=== PATIENT | male | born 1940 | race Caucasian/White ===

== ENCOUNTER 2023-08-12 12:12 | Emergency (ER) | payer OTHER ==
[~2023-08-12] VITALS: Ht 172.7 cm; Wt 68.0 kg
[2023-08-12 12:14] VITALS: O2SAT 100
[2023-08-12 12:52] LABS: CARBON DIOXIDE 27 mmol/L (21-32); CHLORIDE 104 mmol/L (98-107); GLUCOSE 132 mg/dL (74-106); POTASSIUM 4.2 mmol/L (3.5-5.1); SODIUM SERUM 139 mmol/L (136-145); UREA NITROGEN, BLOOD 38 mg/dL (7-18)
[2023-08-12 12:57] LABS: AMMONIA 26 umol/L (11-32); ETHANOL < 3 MG/DL (0-10)
[2023-08-12 13:01] LABS: ACETAMINOPHEN < 2.0 ug/mL (10-30); ALANINE AMINOTRANSFERASE 29 U/L (16-63); ALBUMIN 3.6 g/dL (3.4-5.0); ALKALINE PHOSPHATASE 52 U/L (50-136); ASPARTATE AMINOTRANSFERASE 16 U/L (15-37); BILIRUBIN,DIRECT 0.1 mg/dL (0.0-0.2); BILIRUBIN,TOTAL 0.3 mg/dL (0.2-1.0)
[2023-08-12 13:05] LABS: THYROID STIMULATING HORMONE 0.652 mIU/mL (0.358-3.740)
[2023-08-12 13:10] LABS: BASOPHILS # (AUTO) 0.1 K/UL (0.0-0.2); BASOPHILS % (AUTO) 1.2 % (0.0-2.0); EOSINOPHILS # (AUTO) 0.3 K/uL (0.0-0.7); EOSINOPHILS % (AUTO) 5.9 % (0.0-7.0); HEMATOCRIT 36.2 % (36.7-47.1); LYMPHOCYTES # (AUTO) 0.9 K/uL (0.8-4.8); LYMPHOCYTES % (AUTO) 20.6 % (20.5-51.5); MEAN CORPUSCULAR HEMOGLOBIN 30.6 uug (23.8-33.4); MEAN CORPUSCULAR HGB CONC 33 g/dL (32.5-36.3); MONOCYTES # (AUTO) 0.2 K/uL (0.1-1.30); MONOCYTES % (AUTO) 5.5 % (0.0-11.0); NEUTROPHILS # (AUTO) 2.9 K/uL (1.8-8.9); NEUTROPHILS % (AUTO) 66.8 % (38.5-71.5); PLATELET COUNT (AUTO) 144 K/uL (152-348); RED BLOOD CELL COUNT(AUTO) 3.93 MIL/uL (4.06-5.63); RED CELL DISTRIBUTION WIDTH 13.6 % (12.1-16.2); WHITE BLOOD COUNT (AUTO) 4.3 K/uL (3.6-10.2)
[2023-08-12 13:16] LABS: DIFFERENTIAL COMMENT 1
== END 2023-08-12 16:21 | disposition home or self-care (01) ==
LOC: EDBD 12:12 → ER 12:12
DX: R09.89 Other specified symptoms and signs involving the circulatory and respiratory systems (principal); R51.9 Headache, unspecified; R07.89 Other chest pain
CPT/HCPCS: 36415; 70450; 71045; 84443; 84484; 85025; 85730; 93005; A4606; A4663; G0480

== ENCOUNTER 2024-05-21 17:03 | Emergency (ER) | payer OTHER, MEDICAID ==
[~2024-05-21] VITALS: Ht 172.7 cm; Wt 63.5 kg
[2024-05-21 20:46] VITALS: BP 147/69; TEMP 98.2; O2SAT 97
== END 2024-05-21 20:40 | disposition home or self-care (01) ==
LOC: ER 17:04
DX: S16.1XXA Strain of muscle, fascia and tendon at neck level, initial encounter (principal); S00.531A Contusion of lip, initial encounter; R03.0 Elevated blood-pressure reading, without diagnosis of hypertension; F03.90 Unspecified dementia, unspecified severity, without behavioral disturbance, psychotic disturbance, mood disturbance, and anxiety; Z60.2 Problems related to living alone; W01.0XXA Fall on same level from slipping, tripping and stumbling without subsequent striking against object, initial encounter; Y93.89 Activity, other specified; Y92.89 Other specified places as the place of occurrence of the external cause; Y99.8 Other external cause status
CPT/HCPCS: 70450; 70486; 70490; A4606; A4663